=== PATIENT | male | born 1990 | race African-American/Black ===

== ENCOUNTER 2019-01-14 23:05 | Emergency (ER) | payer OTHER ==
--- NOTE | 2019-01-15 00:26 | RADIOLOGY REPORT (SQ) ---
EXAM DESCRIPTION: XR HAND 3 OR MORE VIEWS COMPLETED DATE/TME: 01/14/2019 23:31 CLINICAL HISTORY: 28 years, Male, pain dorsal surface of hand eval for infection COMPARISON: None. NUMBER OF VIEWS: 3 TECHNIQUE: 3 view left hand LIMITATIONS: None. FINDINGS: Negative for fracture or dislocation. Dorsal soft tissue swelling of the hand. No soft tissue gas. No underlying osseous abnormality IMPRESSION: Dorsal soft tissue swelling with no acute osseous abnormality copyright 2010 [id number]- All Rights Reserved
[2019-01-15 00:57] LABS: ABSOLUTE EOSINOPHILS # (AUTO) 0.1 10^3/uL (0.0-0.6); ABSOLUTE LYMPHOCYTES (AUTO) 2.9 10^3/uL (0.5-4.7); ABSOLUTE MONOCYTES (AUTO) 0.6 10^3/uL (0.1-1.4); ABSOLUTE NEUT (AUTO) 5.5 10^3/uL (1.7-8.2); BASOPHILS % (AUTO) 0.5 % (0-2); EOSINOPHILS % (AUTO) 0.9 % (0-6); HEMATOCRIT 42.1 % (37.9-51.0); HEMOGLOBIN 14.3 g/dL (13.5-17.0); LYMPHOCYTES % (AUTO) 31.7 % (13-45); MEAN CORPUSCULAR HEMOGLOBIN 29.1 pg (27.0-33.4); MEAN CORPUSCULAR HGB CONC 33.9 g/dL (32.0-36.0); MEAN CORPUSCULAR VOLUME 86 fl (80-97); MONOCYTES % (AUTO) 6.1 % (3-13); PLATELET COUNT 304 10^3/uL (150-450); RED CELL DISTRIBUTION WIDTH 14.8 % (11.5-14.0); SEGMENTED NEUTROPHILS % (AUTO) 60.8 % (42-78); TOTAL CELLS COUNTED % (AUTO) 100 %; WHITE BLOOD COUNT 9.1 10^3/uL (4.0-10.5)
[2019-01-15 01:16] LABS: ALANINE AMINOTRANSFERASE 39 U/L (21-72); ALBUMIN 4.6 g/dL (3.5-5.0); ALKALINE PHOSPHATASE 88 U/L (38-126); ANION GAP 9 (5-19); ASPARTATE AMINO TRANSFERASE 24 U/L (17-59); BILIRUBIN,DIRECT 0.2 mg/dL (0.0-0.4); BILIRUBIN,TOTAL 0.5 mg/dL (0.2-1.3); BLOOD UREA NITROGEN 13 mg/dL (7-20); CALCIUM 10.5 mg/dL (8.4-10.2); CARBON DIOXIDE 28 mmol/L (22-30); CHLORIDE 105 mmol/L (98-107); GLUCOSE 96 mg/dL (75-110); POTASSIUM 4.1 mmol/L (3.6-5.0); SODIUM 142.1 mmol/L (137-145); TOTAL PROTEIN 8.1 g/dL (6.3-8.2)
[2019-01-15] MEDS ORDERED: CEPHALEXIN 500 MG CAPSULE PO ONE (01:46)
[2019-01-15 01:47] VITALS: BP 159/90
--- NOTE | 2019-01-15 01:51 | ER Document Report ---
HPI - HPI Time Seen by Provider: 01/14/19 23:26 Pain Level: 4 Notes: Patient is a 28-year-old male who presents the emergency department chief complaint of redness, itching and swelling to the dorsal surface of his left hand. Patient reports he had a tendon repair done to this area 2 years ago. He states that they placed a permanent suture and he thinks this may be infected. Patient does report history of cellulitis to this area approximately 2 months ago. He states he took all medications as prescribed and symptoms resolved until 2 days ago. Patient denies any fevers. Reports some drainage from the area. Patient is from [place] and does not have an orthopedic here. He states he is traveling back to [place] tomorrow. Past Medical History - General Information source: Patient - Social History Smoking Status: Never Smoker Frequency of alcohol use: None Drug Abuse: None Family History: Reviewed & Not Pertinent - Medical History Medical History: Negative Surgical Hx: Negative - Immunizations Immunizations up to date: Yes Vertical Provider Document - CONSTITUTIONAL Notes: PHYSICAL EXAMINATION: GENERAL: Well-appearing, well-nourished and in no acute distress. HEAD: Atraumatic, normocephalic. EYES: Pupils equal round extraocular movements intact, conjunctiva are normal. ENT: Nares patent NECK: Normal range of motion LUNGS: No respiratory distress Musculoskeletal: Normal range of motion, mild erythema without induration or fluctuance noted to dorsal surface of left hand, cap refill brisk, strong radial pulse. NEUROLOGICAL: Normal speech, normal gait. PSYCH: Normal mood, normal affect. SKIN: Warm, Dry, normal turgor, no rashes or lesions noted. - INFECTION CONTROL TRAVEL OUTSIDE OF THE [place] IN LAST 30 DAYS: No Course - Re-evaluation Re-evalutation: X-rays negative for any fracture dislocation. Shows soft tissue swelling. CBC and CMP are unremarkable. Patient will be started on oral antibiotics and discharged home. Patient encouraged to follow-up with his orthopedic is in his gets back to [place]. Discussed ED return precautions, patient verbalizes understanding and agreement with same. - Vital Signs Vital signs: Temp Pulse Resp BP Pulse Ox 98.0 F 74 155/80 H 99 01/14/19 23:10 01/14/19 23:10 01/14/19 23:10 01/14/19 23:10 - Laboratory Result Diagrams: 01/15/19 00:46 01/15/19 00:46 Laboratory results interpreted by me: 01/15/19 01/15/19 00:46 00:46 RDW 14.8 H Calcium 10.5 H Discharge - Discharge Clinical Impression: Cellulitis Qualifiers: Site of cellulitis: extremity Site of cellulitis of extremity: upper extremity Laterality: left Qualified Code(s): L03.114 - Cellulitis of left upper limb Condition: Stable Disposition: HOME, SELF-CARE Additional Instructions: The rash is likely due to infection of your skin. You need to take the antibiotics as prescribed. Do not stop even if the rash goes away until you have completed all the antibiotics. You should return if you develop fevers with temperature greater than 101, persistent vomiting, worsening pain, or have any other symptoms that are concerning to you. Please follow-up with your orthopedic when you get back home. They may want to consider replacing the internal suture this is continuously getting infected. Please return to the emergency department for any new or worsening symptoms. Take all medications as prescribed. Prescriptions: RX: Amlodipine Besylate [Norvasc 5 mg Tablet] 5 mg PO DAILY #30 tablet Cephalexin [Cephalexin 500 MG Tablet] 1 tab PO QID #40 tablet Forms: Elevated Blood Pressure
== END 2019-01-15 02:02 | disposition home or self-care (01) ==
LOC: ER 23:05
DX: L03.114 Cellulitis of left upper limb (principal); Z98.890 Other specified postprocedural states
CPT/HCPCS: 36415; 80053; 85025; 87040; 99283